=== PATIENT | female | born 1950 | race Caucasian/White ===

== ENCOUNTER 2017-01-21 19:09 | Inpatient (IN) ==
--- NOTE | 2017-01-21 19:25 | PROVIDER DOCUMENTATION ---
HPI-General Adult - General Chief Complaint: Syncope Stated Complaint: fall Time Seen by Provider: 01/21/17 19:17 Allergies/Adverse Reactions: Patient Allergies Allergy/AdvReac Type Severity Reaction Status Date / Time adhesive tape Allergy Mild RASH Verified 02/06/16 07:26 Home Medications: Home Medication List Medication Instructions Recorded Confirmed Last Taken Type Gabapentin [Neurontin] 1 - 2 cap PO Q8HR 11/28/13 01/21/17 01/20/17 21:00 History Glipizide [Glucotrol] 5 mg PO BID 11/28/13 01/21/17 01/20/17 10:00 History Esomeprazole [Nexium] 40 mg PO DAILY 04/09/15 01/21/17 01/19/17 10:00 History Lactulose 2 tsp PO DAILY 04/09/15 01/21/17 01/20/17 10:00 History Furosemide [Lasix] 40 mg PO DAILY 02/06/16 01/21/17 01/20/17 10:00 History Losartan [Cozaar] 50 mg PO DAILY 02/06/16 01/21/17 01/20/17 10:00 History Spironolactone 100 mg PO DAILY 02/06/16 01/21/17 01/20/17 10:00 History Past History - Adult - PAST MEDICAL HISTORY-ADULT Cardiovascular: reports: CAD, HTN, hyperlipidemia Respiratory: reports: bronchitis Gastrointestinal: reports: denies history Genitourinary: reports: denies history Musculoskeletal: reports: denies history Neurological: reports: denies history Endocrine/Immune: reports: Diabetes Other Conditions: reports: denies history - PRIOR SURGERIES/PROCEDURES Surgical/Procedure History: reports: hysterectomy, orthopedic (extremity) - FAMILY HISTORY Family History: diabetes
[2017-01-21 19:37] LABS: ALLEN TEST YES; BE 3.2 mmoll (-3.0-3.0); BLOOD TYPE ARTERIAL; DRAW SITE R RADIAL; METHB 1.7 % (0.0-1.5); O2(CT) 10.5 mL/dL (15.0-23.0); PCO2(98.6) 33 mmHg (35-45); PO2(98.6) 79 mmHg (60-100); SAMPLE BLOOD; SAO2 99.2 % (95.0-100.0); THB 7.7 g/dL (11.5-17.4); pH(98.6) 7.51 (7.35-7.45)
[2017-01-21 19:38] LABS: MODALITY ROOM AIR
[2017-01-21 21:10] LABS: MANUAL DIFF NEEDED? NO
[2017-01-21 21:23] LABS: URINE MICRO REVIEW NEEDED? NO; URINE SOURCE CLEAN CATCH
[2017-01-21 21:26] LABS: BASO% 0.5 % (0.0-0.8); EOS# 0.09 X1000 (0.0-0.7); EOS% 2.2 % (0.0-10.0); HEMOGLOBIN 7.9 g/dL (12.0-16.0); IMM GRAN# 0.03 X1000 (0.0-0.04); IMM GRAN% 0.7 % (0.0-0.5); LYMPH# 0.33 X1000 (1.2-3.4); MCH 29.7 PG (27-31); MCHC 31.6 g/dL (33-37); MONO# 0.43 X1000 (0.11-0.59); MONO% 10.4 % (1.7-9.3); MPV 9.6 FL (7.4-10.4); NEUT% 78.2 % (42.2-75.2); PLT 103 X1000 (130-400); RBC 2.66 XMIL (4.2-5.4)
[2017-01-21 21:28] LABS: BILIRUBIN URINE NEGATIVE (NEGATIVE); BLOOD URINE LARGE (NEGATIVE); COLOR YELLOW; GLUCOSE URINE NEGATIVE (NEGATIVE); LEUKOCYTES URINE LARGE (NEGATIVE); NITRITE URINE NEGATIVE (NEGATIVE); PROTEIN URINE 50 mg/dL (NEGATIVE); SP GRAVITY URINE 1.028; TURBIDITY URINE HAZY (CLEAR); UR EPITHELIAL CELLS >10 /HPF (<10); URINE BACTERIA 4+ /HPF; URINE CULTURE NEEDED? YES; URINE RBC 20-40 /HPF (<10); UROBILINOGEN URINE 4 mg/dL (NORMAL)
[2017-01-21 21:30] LABS: INR 1.31; PTT 28.8 Seconds (22.0-36.0)
[2017-01-21 21:39] LABS: AGAP 10; ALBUMIN 2.4 g/dL (3.5-5.0); ALKALINE PHOSPHATASE 100 U/L (32-104); BUN 15 mg/dL (8-22); CALCIUM 7.8 mg/dL (8.8-10.2); CHLORIDE 106 mmol/L (98-107); CK PROFILE 113 U/L (24-173); COSMO 280; GOT 35 U/L (10-30); GPT 15 U/L (10-36); POTASSIUM 3.6 mmol/L (3.5-5.1); SODIUM 141 mmol/L (136-145); TCO2 25 mmol/L (25-35); TOTAL BILIRUBIN 1.08 mg/dL (0.20-1.00); TOTAL PROTEIN 5.3 g/dL (6.3-8.3)
[2017-01-21 21:40] LABS: UR AMPHETAMINES QUAL NONE DETECTED (NONE DETECT); UR BARBITUATES QUAL NONE DETECTED (NONE DETECT); UR BENZODIAZEPIN QUAL NONE DETECTED (NONE DETECT); UR CANNABINOIDS QUAL NONE DETECTED (NONE DETECT); UR COCAINE QUAL NONE DETECTED (NONE DETECT); UR METHADONE QUAL NONE DETECTED (NONE DETECT); UR OPIATES QUAL NONE DETECTED (NONE DETECT); UR OXYCODONE QUAL NONE DETECTED (NONE DETECT); UR PCP QUAL NONE DETECTED (NONE DETECT)
[2017-01-21] MEDS ORDERED: NORCO-7.5 PO ONE (21:55)
[2017-01-22] MEDS ORDERED: LASIX IV ONE (00:19)
[2017-01-22] MEDS ORDERED: D50W SYRINGE IV ONE (00:20)
[2017-01-22] MEDS: ROCEPHIN 1 GM/NS 1 GM/50 ML IVPB IV SCH (01:40)
[2017-01-22] MEDS ORDERED: TYLENOL PO PRN (02:36)
[2017-01-22] MEDS ORDERED: ZOFRAN IV PRN (02:36)
[2017-01-22 05:48] LABS: BASO% 0.1 % (0.0-0.8); EOS# 0.02 X1000 (0.0-0.7); EOS% 0.3 % (0.0-10.0); HEMATOCRIT 23.3 % (37.0-47.0); HEMOGLOBIN 7.3 g/dL (12.0-16.0); IMM GRAN# 0.02 X1000 (0.0-0.04); IMM GRAN% 0.3 % (0.0-0.5); LYMPH# 0.22 X1000 (1.2-3.4); LYMPH% 2.9 % (20.5-51.1); MANUAL DIFF NEEDED? YES; MCH 29.4 PG (27-31); MCHC 31.3 g/dL (33-37); MONO# 0.44 X1000 (0.11-0.59); MONO% 5.8 % (1.7-9.3); MPV 9.5 FL (7.4-10.4); NEUT% 90.6 % (42.2-75.2); PLT 91 X1000 (130-400); RBC 2.48 XMIL (4.2-5.4)
[2017-01-22 05:57] LABS: LYMPHS 8 % (21-51); MONO 4 % (1-9)
--- NOTE | 2017-01-22 06:12 | EKG Report ---
Test Performed on : 01/21/2017 10:06:14 PM Test Reason : AMS Blood Pressure : / mmHG Vent. Rate : 082 BPM Atrial Rate : 082 BPM P-R Int : 116 ms QRS Dur : 088 ms QT Int : 384 ms P-R-T Axes : 042 020 047 degrees QTc Int : 448 ms Normal sinus rhythm. Cannot rule out Anterior infarct (cited on or before 09-APR-2015) Abnormal ECG When compared with ECG of 09-APR-2015 10:42, Vent. rate has increased BY 29 BPM Nonspecific T wave abnormality now evident in Inferior leads Unconfirmed Result
--- NOTE | 2017-01-22 08:32 | Diag Imaging Result Document ---
PROCEDURE NAME: HEAD W/O CONTRAST - 01/21/[address]: A CT dose reduction protocol was used. COMPARISON: None. FINDINGS: The ventricles and sulci are normal in size and contour. There is no mass, hemorrhage, or evidence of acute ischemia. The bony calvaria is intact. The visualized paranasal sinuses and mastoid air cells are clear. IMPRESSION: Negative head CT. MTDD
[2017-01-22] MEDS ORDERED: LACTULOSE PO SCH (09:00)
[2017-01-22] MEDS ORDERED: ALDACTONE PO SCH (09:00)
[2017-01-22] MEDS ORDERED: LASIX PO SCH (09:00)
--- NOTE | 2017-01-22 09:11 | HISTORY AND PHYSICAL ---
PRIMARY CARE PROVIDER: Lucy Delgado MD. TRADE ANALYST: Dr. Al. CHIEF COMPLAINT: Dizziness. Fell in the bathroom. HISTORY OF PRESENT ILLNESS: This is a 66-year-old, female, with a history of HAYES, coronary artery disease, hypertension, hyperlipidemia, diabetes mellitus type 2 who went in to see Dr. Al for a paracentesis this morning around 8 a.m. She has chronic anemia secondary to her end-stage liver disease. At any rate, she got home after the paracentesis took a nap. She had gone to the bathroom, became very dizzy and fell. She states that she did hit her head. No laceration or hematoma was noted. A CT scan was done in the emergency room which showed no acute intracranial process. No hemorrhage. The patient is alert and oriented x3. Hemoglobin and hematocrit were checked. They were 7.9 and 25 respectively. It appears this morning they were checked as well perhaps before the procedure and were 8.2 and 25.77, so no large drop in her baseline hemoglobin and hematocrit. The patient was noted to have a urinary tract infection per her urinalysis that was collected in the emergency room and had a mild elevation of her temperature at 99.9 degrees. She will be admitted to the medical floor for further evaluation and treatment. PAST MEDICAL HISTORY: 1. HAYES.. 2. Coronary artery disease. 3. Hypertension. 4. Hyperlipidemia. 5. Diabetes mellitus type 2. 6. Heart murmur. PREVIOUS SURGICAL HISTORY: 1. Back surgery. 2. Ankle surgery. 3. Hysterectomy. 4. Carpal tunnel release. 5. Paracentesis. SOCIAL HISTORY: Denies tobacco, alcohol or illicit drug use or abuse. Lives with her daughter. ALLERGIES: No known drug allergies. Allergic to adhesive tape causing a rash. FAMILY HISTORY: Patient denies any significant family history in first-degree relatives. Denied coronary artery disease. HOME MEDICATIONS: 1. Neurontin 300 mg 1-2 capsules p.o. at bedtime. 2. Glipizide 5 mg p.o. b.i.d. 3. Nexium 40 mg p.o. daily. 4. Lactulose 2 teaspoons p.o. daily. 5. Spironolactone 100 mg p.o. daily. 6. Cozaar 50 mg p.o. daily. 7. Lasix 40 mg p.o. daily. REVIEW OF SYSTEMS: Fourteen point review of systems conducted with the patient. Pertinent positives listed above in the HPI. All other systems are negative. All other systems were examined and found to be negative. PHYSICAL EXAMINATION: VITAL SIGNS: Temperature 99.9 degrees, pulse 86, respirations 18, blood pressure 171/49, oxygen saturation 100% on room air. GENERAL: Very pleasant, 66-year-old female, alert and oriented x3. Able answer all questions appropriately. No acute distress lying on ER stretcher. HEENT: Head is atraumatic, normocephalic. Pupils equal, round, reactive to light. Extraocular eye movement is intact. Sclerae is anicteric. Conjunctivae is pale. Oral mucosa is moist. NECK: Supple. No JVD. Trachea is midline. CARDIOVASCULAR: Regular rhythm. S1-S2 appreciated. A 3/6 systolic ejection murmur noted. No gallops, no rubs. LUNGS: Clear to auscultation bilaterally with a slightly diminished symmetrical rise and fall with respirations. ABDOMEN: Protuberant, soft, nondistended, nontender. Positive fluid wave test. Bowel sounds hyperactive all 4 quadrants noted to be distant. MUSCULOSKELETAL: Patient 3/5 upper and lower extremity strength. Global weakness noted. EXTREMITIES: Mid bilateral lower extremities from the valle to foot. There was 3+ pitting edema with color changes related to chronic venostasis. There are 2+ pedal pulses bilaterally. GENITOURINARY: Patient voids, otherwise deferred. NEUROLOGICAL: Alert and oriented x3. Cranial nerves 2-12 are grossly intact. DIAGNOSTIC DATA: CT of the head, no acute intracranial process. No hemorrhage. Chest x-ray mild cardiomegaly. LABORATORY DATA: WBC 4.12, hemoglobin 7.9, hematocrit 25, platelet count 48080.0, PT 14, INR 1.31, PTT 28.8, ABG pH 7.51, PCO2 33, PO2 79 bicarb 27.4. This was on room air. Sodium 141, potassium 3.6, chloride 106, carbon dioxide 25, BUN 15, creatinine 0.8, glucose 68, AST 35, ALT 15, total bilirubin 1.08. Urine large amount of leukocytes, 4+ bacteria. Toxicology screen is negative. Serum alcohol is negative. ASSESSMENT AND PLAN: 1. Chronic anemia secondary to nonalcoholic steatohepatitis. Patient's hemoglobin and hematocrit are 7.9 and 25. They were checked this morning presumably by Dr. Rubi before the paracentesis was performed. At that time they were 8.2 and 25.7. Will type and screen the patient for possible transfusion, but will not transfuse at this time as she is presumably right around her baseline. 2. Nonalcoholic steatohepatitis. The patient sees Dr. Al outpatient for paracentesis and management of this. We will consult Dr. Al. 3. Hypertension. Continue home medications. 4. Diabetes mellitus type 2. Check blood sugars before meals and at bedtime. Continue oral antihyperglycemics. 5. Chronic pain secondary to back surgery, give [place] p.r.n. 6. Urinary tract infection. Rocephin 1 g IV q.24 hours. Further recommendations per patient clinical course. Dictated by OWEN Price for Joseph Torrez MD cc: OWEN Price MD Faye Wilson, MD Manish Arora, MD
--- NOTE | 2017-01-22 09:18 | Diag Imaging Result Document ---
PROCEDURE NAME: KNEE 3 VIEWS RIGHT - 01/21/2017 X-RAY RIGHT KNEE THREE VIEWS: COMPARISON: None. FINDINGS: There is moderate joint space narrowing and degenerative spurring involving all joint compartments. No visible fracture. There is probably a large nonspecific joint effusion. IMPRESSION: Degenerative changes of the knee. Rather large joint effusion. No obvious fracture.
--- NOTE | 2017-01-22 09:47 | Diag Imaging Result Document ---
PROCEDURE NAME: CHEST-PORTABLE - 01/21/2017 SINGLE FRONTAL RADIOGRAPH OF THE CHEST: COMPARISON: 11/28/2013. FINDINGS: There is suggestion of minimal left basilar atelectasis. The lungs are clear otherwise. There is no definite pleural fluid collection. Cardiac silhouette is mildly prominent but stable. Central vasculature is unremarkable. IMPRESSION: Suggestion of minimal left lower lung zone atelectasis and stable cardiomegaly.
[2017-01-22] MEDS: PRILOSEC PO SCH (09:54)
[2017-01-22] MEDS: GLUCOTROL PO SCH ×2 (09:55→21:06)
[2017-01-22] MEDS: COZAAR PO SCH (09:55)
[2017-01-22] MEDS: NORCO-7.5 PO PRN ×2 (12:15→18:08)
[2017-01-22] MEDS ORDERED: ALBUMIN 25% IV ONE (12:45)
--- NOTE | 2017-01-22 14:35 | PROGRESS NOTE ---
DATE: 01/22/2017 SUBJECTIVE: This patient states that she is feeling much better. She had a paracentesis done and she is breathing comfortably. She does have a burning sensation with urination. Family member is at the bedside. Gastroenterology department has been consulted. OBJECTIVE: Vital Signs: Temperature 98.4 degrees, pulse 100, respiratory rate 20, blood pressure 140/62, oxygen saturation 100% on room air. HEENT: Head normocephalic. No trauma. PERRLA. Neck: Supple. No JVD. No masses. Central trachea. Chest: Mild rales at the bases. Abdomen: Soft, distended. There was a recent paracenteses and ascitic fluid is leaking from the paracentesis area. Positive bowel sounds. No pain. Extremities: No clubbing. No cyanosis. There are 2+ pulses bilaterally. There is 2+ pitting edema. Neurological: The patient is alert and oriented x3. No focal neurological deficits. LABORATORY: WBC 7.5, hemoglobin 7.3, hematocrit 23.3, platelets 91,000. Ammonia 54. Urine blood large, urine leukocyte large, urine WBC 10-20, urine bacteria 4+. ASSESSMENT AND PLAN: 1. Urinary tract infection. This patient has been placed on antibiotics. I will hold for now the Lasix and spironolactone. We will continue to monitor. 2. Liver cirrhosis. Today this patient had a paracentesis done. She had ascitic fluid collected. We will continue to monitor. Dr. Al has been following this patient. 3. Hypertension. Continue with home medication. 4. Type 2 diabetes. Continue with the same management for now. 5. Chronic pain syndrome secondary to back surgery. Continue with home medications. 6. Chronic anemia. Aware. cc: Kaushal Jarrell MD
[2017-01-22] MEDS: LEVAQUIN 750 MG/D5W 750 MG/150 ML IVPB IV SCH (14:57)
--- NOTE | 2017-01-22 16:50 | CONSULTATION ---
DATE OF CONSULTATION: 01/22/2017 REFERRING PHYSICIAN: Kaushal Jarrell MD PRIMARY CARE DOCTOR: Lucy Delgado MD REASON FOR CONSULTATION: Liver cirrhosis. Status post fall and UTI. HISTORY OF PRESENT ILLNESS: Ms. Goodwin is a 66-year-old female who has a known history of nonalcoholic steatohepatitis complicated with cirrhosis, ascites, pedal edema, encephalopathy, thrombocytopenia, coagulopathy, anemia who had a recent paracentesis done yesterday on 01/21/2017 where 3.7 L was removed. After that, the patient discharge home. The patient yesterday after she went home had a nap and after the nap, she woke up and went to the bathroom and became dizzy and fell. She hit her head. Her imaging, the CT scan did not show any evidence of acute intracranial process and no hemorrhage. The patient was noted to have positive UA. Her urine culture is currently pending. She has history of previous UTI, but the last UTI with many years ago. She saw me in the clinic 2 days ago after a year. She was not very compliant with her medications at that time, so we restarted her back on her lipid medication. During this admission, the patient denies any nausea or vomiting, vomiting blood or passing blood in the stools. She does complain of low-grade fever, 99.9. The primary care team is evaluating her for urosepsis. PAST MEDICAL HISTORY: 1. HAYES. 2. Liver cirrhosis. 3. Ascites. 4. Encephalopathy. 5. Reflux disease. 6. Thrombocytopenia. 7. Coagulopathy. 8. Coronary artery disease. 9. Hypertensive. 10. Hyperlipidemia. 11. Type 2 diabetes. 12. Heart murmur. 13. Obesity. PREVIOUS SURGICAL HISTORY: Back surgery, hysterectomy, carpal tunnel release. SOCIAL HISTORY: Denies alcohol, tobacco or illicit drugs. She lives with her daughter, very supportive daughter at bedside. ALLERGIES: No known drug allergies, but she is allergic to adhesive tape causing a rash. FAMILY HISTORY: No history of liver disease in the family. MEDICATIONS AT HOME: 1. Neurontin 300 mg, 1-2 tablets at bedtime. 2. Glipizide 5 mg b.i.d. 3. Nexium 40 mg daily. 4. Lactulose 30 mL p.o. b.i.d. 5. Spironolactone 100 mg once daily. 6. Cozaar 50 mg daily. 7. Lasix 40 mg daily. 8. Multivitamin once daily. REVIEW OF SYSTEMS: Denies any current chills, but does complain of low-grade fever, and feeling warm. Denies any chest pain, shortness of breath, dyspnea. Denies vomiting blood or passing blood in the stools. Denies any nausea, vomiting, does complain of some leakage at the paracentesis site and has surgical gauze on that side. Denies any abdominal pain. Does complain of burning urination. Denies any neurologic complaints, although at home she did have a fall. PHYSICAL EXAMINATION: Vital signs: Temperature of 98.4 degrees, pulse rate of 100, respiratory rate 20, blood pressure 140/62, saturating 100% on room air. Body weight of 245 pounds. BMI of 39.5 kg/m2. General: well-developed, well-nourished female who is obese, lying in bed, in no acute distress. HEENT: Pale conjunctivae. Mild icterus. Pupils equal, react to light. Neck: Supple. Chest: Decreased breath sounds bases. Heart: Regular rhythm. Tachycardic at times. Abdomen: Obese, mild ascites noted, mild distention noted. Body wall edema. Anasarca noted. Surgical dressing on gauze noted in the right lower quadrant at the site for paracentesis which the area is wet. No tenderness in the abdomen. Bowel sounds present. Extremities: Bilateral lower extremity edema noted. Neurologic: She is alert, awake, oriented. LABORATORY/DIAGNOSTICS: Her hemoglobin and hematocrit is 7.3, 23.3, white count of 7.5 platelet count of 91,000, MCV of 94. INR of 1.3, PT of 14, PTT of 28.8. Her sodium 140, potassium 3.6, chloride 106, bicarb 25, anion gap 10, BUN of 15, creatinine 0.8, glucose of 68, calcium 7.8. Total bilirubin is 1.08, AST 35, ALT 15, alkaline phosphatase 100, total protein is 5.3, albumin of 2.4, ammonia 54, and lactate of 1.1. ABG: PH of 7.51, pCO2 32, PO2 of 71, this is on room air. Urinalysis showing positive protein, trace ketones, large amount of blood, large leukocytes and bacteria positive. Tox screen is negative. Blood alcohol level is negative. Head CT done showed negative head CT. Ultrasound done yesterday which showed: 1) Nodular liver contour suggesting cirrhosis. 2) Splenomegaly with the spleen size measuring 16.4 cm. 3) Ascites. Ascitic tap done yesterday by Dr. Octaviano Hay where 3.7 L of cloudy straw-colored fluid was aspirated. No known complications and the fluid studies are showing white cells of 426. Polymorphonuclear white cells of 64% and total protein 0.7, albumin of 0.2. This is consistent with a spontaneous bacterial peritonitis. IMPRESSION AND PLAN: 1. Spontaneous bacterial peritonitis per the fluid studies from yesterday. 2. Liver cirrhosis. 3. Thrombocytopenia. 4. Coagulopathy. 5. Metabolic syndrome. 6. Diabetes, hypertension, hyperlipidemia, obesity. 7. Urinary tract infection. RECOMMENDATIONS: 1. We will give the patient albumin 25 g IV once daily for 5 days. 2. We will keep her on antibiotics with Levaquin. Her ascitic fluid culture is currently pending. We will also do a urine culture, it is currently pending. 3. We will keep her on Protonix once daily. 4. We will hold her Lasix and Aldactone for now. 5. We will keep a strict eye on her electrolytes, input and output and daily weights. 6. We will keep her on lactulose 30 mL p.o. b.i.d., and Xifaxan 500 mg p.o. b.i.d. 7. We will avoid any hepatotoxic drugs. 8. Further recommendations pending hospital course. The patient will need to be on Levaquin for 2 weeks. Further recommendations pending hospital course. I discussed the above plan of care with the patient and her daughter at bedside. cc: MD Stanley Hathaway MD
[2017-01-22] MEDS: NEURONTIN PO SCH (21:06)
[2017-01-22] MEDS: CENTRUM SILVER PO SCH (21:06)
[2017-01-22] MEDS: LACTULOSE PO SCH (21:06)
[2017-01-22] MEDS: ICAR-C PO SCH (21:06)
[2017-01-22] MEDS: XIFAXAN PO SCH (21:45)
[2017-01-23] MEDS: ROCEPHIN 1 GM/NS 1 GM/50 ML IVPB IV SCH (00:56)
[2017-01-23] MEDS: PRILOSEC PO SCH ×2 (05:57→06:52)
[2017-01-23 06:04] LABS: MANUAL DIFF NEEDED? NO
[2017-01-23 06:16] LABS: BASO% 0.4 % (0.0-0.8); EOS# 0.08 X1000 (0.0-0.7); EOS% 2.9 % (0.0-10.0); HEMATOCRIT 21.1 % (37.0-47.0); HEMOGLOBIN 6.5 g/dL (12.0-16.0); LYMPH# 0.26 X1000 (1.2-3.4); LYMPH% 9.4 % (20.5-51.1); MCH 29.1 PG (27-31); MCHC 30.8 g/dL (33-37); MCV 94.6 FL (81-99); MONO# 0.28 X1000 (0.11-0.59); MONO% 10.1 % (1.7-9.3); MPV 9.8 FL (7.4-10.4); NEUT% 77.2 % (42.2-75.2); PLT 76 X1000 (130-400); RBC 2.23 XMIL (4.2-5.4)
[2017-01-23 06:42] LABS: AGAP 8; ALBUMIN 2.3 g/dL (3.5-5.0); ALKALINE PHOSPHATASE 76 U/L (32-104); BUN 18 mg/dL (8-22); CALCIUM 7.7 mg/dL (8.8-10.2); CHLORIDE 105 mmol/L (98-107); COSMO 274; GOT 28 U/L (10-30); GPT 12 U/L (10-36); POTASSIUM 3.4 mmol/L (3.5-5.1); SODIUM 137 mmol/L (136-145); TCO2 24 mmol/L (25-35); TOTAL BILIRUBIN 0.51 mg/dL (0.20-1.00); TOTAL PROTEIN 4.8 g/dL (6.3-8.3)
[2017-01-23] MEDS ORDERED: KLOR-CON PO ONE (08:17)
[2017-01-23] MEDS: COZAAR PO SCH (09:42)
[2017-01-23] MEDS: LACTULOSE PO SCH ×2 (09:42→20:38)
[2017-01-23] MEDS: GLUCOTROL PO SCH ×2 (09:42→20:38)
[2017-01-23] MEDS: CENTRUM SILVER PO SCH ×2 (09:42→20:38)
[2017-01-23] MEDS: XIFAXAN PO SCH ×2 (09:42→20:38)
[2017-01-23] MEDS: ICAR-C PO SCH ×2 (09:42→20:38)
[2017-01-23] MEDS ORDERED: NS 500 ML ONE (10:01)
--- NOTE | 2017-01-23 13:16 | PROGRESS NOTE ---
DATE: 01/23/2017 SUBJECTIVE: This patient states that she is feeling much better, I had a hemoglobin result that showed a decrease of her hemoglobin and hematocrit. Today the hemoglobin is 6.5, and the plan is to transfuse this patient with 1 unit. OBJECTIVE: Vital Signs: Temperature 98.1 degrees, pulse 72, respiratory rate 14, blood pressure 126/80 O2 saturation 99 on room air. HEENT: Head normocephalic. No trauma. PERRLA. Neck: Supple. No JVD. No masses. Central trachea. Abdomen: Soft, nontender, nondistended. Abdomen: Soft, nontender, distended. She had a recent paracenteses and ascitic fluid is leaking from the paracentesis area. Positive bowel sounds. No pain. Extremities: No clubbing, no cyanosis, 2+ pulses bilaterally, 2+ pitting edema. Neurological: The patient is alert and oriented x3. No focal neurological deficits. LABORATORY: WBC 2.7, hemoglobin 6.5, hematocrit 21.1, platelets 76,000. Sodium 137, potassium 3.4, chloride 105, bicarbonate 24, BUN 18, creatinine 0.9. Glucose 72, calcium 7.7, albumin 2.8. ASSESSMENT AND PLAN: 1. Urinary tract infection. This patient has been placed on antibiotics. She is feeling much better. I held for now her Lasix and spironolactone. We will continue to monitor. 2. Liver cirrhosis. Yesterday this patient had a paracentesis done. We will continue to monitor. Gastroenterology Department is on board. 3. Hypertension continue with home medication. 4. Type 2 diabetes. Continue with the same management. 5. Chronic pain syndrome secondary to back surgery. Continue with home medication. 6. Chronic anemia, today the hemoglobin is 6.5. I will transfuse this patient with 1 PRBC. cc: Kaushal Jarrell MD
[2017-01-23] MEDS: LEVAQUIN 750 MG/D5W 750 MG/150 ML IVPB IV SCH (13:21)
[2017-01-23] MEDS: NEURONTIN PO SCH (20:38)
[2017-01-23] MEDS: NORCO-7.5 PO PRN (21:04)
[2017-01-24] MEDS: ROCEPHIN 1 GM/NS 1 GM/50 ML IVPB IV SCH (00:32)
[2017-01-24] MEDS: PRILOSEC PO SCH (06:28)
[2017-01-24 06:37] LABS: MANUAL DIFF NEEDED? NO
[2017-01-24 06:48] LABS: BASO% 0.4 % (0.0-0.8); EOS% 7.7 % (0.0-10.0); HEMATOCRIT 25.6 % (37.0-47.0); HEMOGLOBIN 7.9 g/dL (12.0-16.0); LYMPH# 0.43 X1000 (1.2-3.4); LYMPH% 16.5 % (20.5-51.1); MCH 28.8 PG (27-31); MCHC 30.9 g/dL (33-37); MCV 93.4 FL (81-99); MONO# 0.29 X1000 (0.11-0.59); MONO% 11.2 % (1.7-9.3); MPV 10.1 FL (7.4-10.4); NEUT% 64.2 % (42.2-75.2); PLT 107 X1000 (130-400); RBC 2.74 XMIL (4.2-5.4)
[2017-01-24 07:05] LABS: AGAP 8; BUN 17 mg/dL (8-22); CALCIUM 7.7 mg/dL (8.8-10.2); CHLORIDE 108 mmol/L (98-107); COSMO 282; POTASSIUM 3.3 mmol/L (3.5-5.1); SODIUM 142 mmol/L (136-145); TCO2 26 mmol/L (25-35)
[2017-01-24 07:49] VITALS: BP 133/48
[2017-01-24] MEDS: LACTULOSE PO SCH (10:01)
[2017-01-24] MEDS: ICAR-C PO SCH (10:02)
[2017-01-24] MEDS: COZAAR PO SCH (10:02)
[2017-01-24] MEDS: XIFAXAN PO SCH (10:02)
[2017-01-24] MEDS: GLUCOTROL PO SCH (10:02)
[2017-01-24] MEDS: CENTRUM SILVER PO SCH (10:02)
--- NOTE | 2017-01-27 16:27 | PROVIDER DOCUMENTATION ---
This chart was entered by Joy English Scribe, acting as scribe for Zev Roman MD. HPI-Syncope/Dizziness - General Chief Complaint: Syncope Stated Complaint: fall Time Seen by Provider: 01/21/17 19:17 Source: patient, EMS Allergies/Adverse Reactions: Patient Allergies Allergy/AdvReac Type Severity Reaction Status Date / Time adhesive tape Allergy Mild RASH Verified 01/21/17 19:48 Home Medications: Home Medication List Medication Instructions Recorded Confirmed Last Taken Type Gabapentin [Neurontin] 1 - 2 cap PO QHS 11/28/13 01/21/17 01/20/17 21:00 History Glipizide [Glucotrol] 5 mg PO BID 11/28/13 01/21/17 01/21/17 07:00 History Esomeprazole [Nexium] 40 mg PO DAILY 04/09/15 01/21/17 01/21/17 07:00 History Lactulose 2 tsp PO DAILY 04/09/15 01/21/17 01/21/17 07:00 History Furosemide [Lasix] 40 mg PO DAILY 02/06/16 01/21/17 01/21/17 07:00 History Losartan [Cozaar] 50 mg PO DAILY 02/06/16 01/21/17 01/21/17 07:00 History Spironolactone 100 mg PO DAILY 02/06/16 01/21/17 01/21/17 07:00 History Rifaximin [Xifaxan] 550 mg PO BID #60 tablet 01/24/17 Unknown Rx - History of Present Illness-Syncope/Dizzy Nature of Presenting Problem: PT IS A 66YODF PRESENTING TO THE ED C/O FALL. EMS REPORTS PT HAD A PROCEDURE TO REMOVE SOME FLUID IN HER ABD TODAY AND PT REPORTS THAT SHE HAS HAD SYNCOPAL EPISODES IN THE PAST AND TODAY SHE ASSUMES SHE HAD A SYNCOPAL EPISODE BC SHE WENT TO THE RESTROOM AND WOKE UP IN FLOOR BETWEEN TOILET AND WALL. SHE STATES PAIN RIGHT EYEBROW AND CHEEK, WELL RIGHT KNEE PAIN. NO DEFORMITY OR OPEN WOUNDS SEEN AT EXAM. NO OTHER COMPLAINTS AT THIS TIME If witnessed syncope, by whom?: UNK Prior Episodes: reports: recent history Onset/Duration: reports: just prior to arrival Timing: reports: still present, intermittent Position/Activity at time of episode: reports: sitting Symptoms prior to episode: reports: none. denies: nausea/vomiting, abdominal pain Context: reports: lost consciousness Loss of Consciousness: unsure Location of injury. (If syncope resulted in an injury.): reports: head (RIGHT CHEEK AND EYEBROW), RLE Current Symptoms: reports: none/feels normal. denies: dizzy Similar symptoms previously: denies: previous diagnosis Recently Seen Here or By Another Healthcare Provider: Yes - Dizziness Severity in ED: reports: moderate Dizziness Related Current/Associated Symptoms: reports: lightheaded, dizzy, lightheaded, syncope Any recent trauma/injury?: reports: minor, to head Modifying Factors: improves with: nothing Patient usually:: reports: uses a cane Review of Systems - Adult - REVIEW OF SYSTEMS - ADULT Constitutional: reports: no symptoms reported Eyes: reports: no symptoms reported Ears, Nose, Mouth & Throat: reports: no symptoms reported Cardiovascular: reports: no symptoms reported Respiratory: reports: no symptoms reported Gastrointestinal: reports: no symptoms reported Genitourinary: reports: no symptoms reported Musculoskeletal: reports: see HPI, joint pain (RIGHT KNEE), muscle weakness. denies: neck pain Integumentary: reports: no symptoms reported Neurological: reports: see HPI, syncope. denies: seizure, slurred speech Psychiatric: reports: no symptoms reported Endocrine: reports: no symptoms reported Hematologic/Lymphatic: reports: no symptoms reported Allergic/Immunologic: reports: no symptoms reported All Other Systems: Reviewed and Negative Past History - Adult - PAST MEDICAL HISTORY-ADULT Review of Records: reports: Old Records Reviewed, Nursing Assessment Review, Medications Reviewed, Social history reviewed & non-contributory. Major Childhood Illnesses: reports: denies history Cardiovascular: reports: CAD, HTN, hyperlipidemia Respiratory: reports: bronchitis Gastrointestinal: reports: denies history Obstetrical/Gynecological: reports: denies history Genitourinary: reports: denies history Musculoskeletal: reports: denies history Neurological: reports: denies history Endocrine/Immune: reports: Diabetes Other Conditions: reports: denies history - PRIOR SURGERIES/PROCEDURES Surgical/Procedure History: reports: hysterectomy, orthopedic (extremity) - IMMUNIZATION STATUS Childhood Immunizations: See Nurse Assessment Flu Vaccine: See Nurse Assessment - FAMILY HISTORY Family History: diabetes - SOCIAL HISTORY Smoking: denies, non-smoker Substance Use: none/never, denies Alcohol Use Frequency: never Living Situation: family Physical Exam-General - PHYSICAL EXAM-ADULT Initial Vital Signs Reviewed: Yes - CONSTITUTIONAL General Appearance: appears well, alert, mild distress. negative: no apparent distress - EYES Eyes: PERRL/EOMI, pink conjunctivae, fundi clear, no AV nicking - HEAD, EARS, NOSE, MOUTH & THROAT HENMT: normocephalic/atraumatic, moist mucous membranes, normal ENT inspection, TMs normal, pharynx normal - NECK Neck: non-tender, full range of motion, supple, normal inspection - RESPIRATORY Respiratory: chest non-tender, lungs clear, normal breath sounds, no pleuratic chest pain, no respiratory distress, no accessory muscle use - CARDIOVASCULAR Cardiovascular: normal peripheral pulses, regular rate, rhythm, no edema, no gallop, no JVD, no murmur - GASTROINTESTINAL (ABDOMEN) Abdominal Exam: normal bowel sounds, non tender, soft, no organomegaly, no pulsatile mass - LYMPHATIC Lymphatic: no adenopathy - MUSCULOSKELETAL Back Exam: normal inspection, no CVA tenderness, no vertebral tenderness Extremity: no pedal edema, no calf tenderness, normal capillary refill, pelvis stable, tenderness (RT KNEE). negative: normal range of motion, non-tender, normal gait, normal inspection - SKIN Integumentary: normal color, normal turgor, warm/dry - NEUROLOGIC Neurologic: labor standards director II-XII nml as tested, grossly normal, no motor/sensory deficits - PSYCHIATRIC Psych/Mental Status: normal mood/affect, normal thought content, normal thought process, oriented x 3 Progress - PLAN OF CARE/RESULTS Progress/Plan/Lab Results: Orders Category Date Time Status Admit - [facility] Routine AdmDCTranf 01/21/17 23:56 Ordered Activity - Strict Bedrest ORDERED Care 01/22/17 02:36 Active Apply Mechanical Device [QM] ORDERED Care 01/22/17 02:36 Active Cardiac Monitoring DIRECTED Care 01/21/17 19:21 Completed FSBS/Accucheck Result AC + HS Care 01/22/17 02:36 Active Finger Stick Blood Sugar (ED) DIRECTED Care 01/21/17 19:21 Completed Intake and Output-Strict ORDERED Care 01/22/17 02:36 Active Nursing- MD Consult Request ROUTINE Care 01/22/17 02:36 Active Oxygen Therapy- ED Nursing DIRECTED Care 01/21/17 19:21 Completed Saline Loc NOW Care 01/21/17 19:21 Completed Vital Signs Order Q6-HR ASSESS Care 01/22/17 02:36 Active Physician/Provider Consults Routine Cons 01/22/17 08:00 Ordered Diabetic Diet Diet 01/22/17 00:14 Completed CHEST-PORTABLE [RAD] Stat Exams 01/21/17 19:21 Completed HEAD W/O CONTRAST [CT] Stat Exams 01/21/17 19:25 Completed KNEE 3 VIEWS RIGHT [RAD] Stat Exams 01/21/17 19:23 Completed ABG [RESP] Routine Lab 01/21/17 19:28 Completed ALCOHOL BLOOD Stat Lab 01/21/17 21:05 Completed AMMONIA [CHEM] Stat Lab 01/22/17 02:25 Completed CBC WITH DIFF [HEME] Routine Lab 01/22/17 05:25 Completed CBC WITH ELECTRONIC DIFF [HEME] Stat Lab 01/21/17 21:05 Completed CK PROFILE [SP CHEM] Stat Lab 01/21/17 21:05 Completed COMPREHENSIVE METABOLIC PANEL [CHEM] Routine Lab 01/23/17 04:30 Completed COMPREHENSIVE METABOLIC PANEL [CHEM] Stat Lab 01/21/17 21:05 Completed LACTATE, PLASMA [CHEM] Stat Lab 01/21/17 21:05 Completed PROTIME WITH INR [COAG] Stat Lab 01/21/17 21:05 Completed PTT [COAG] Stat Lab 01/21/17 21:05 Completed TROPONIN T Stat Lab 01/21/17 21:05 Completed TYPE & SCREEN [BBK] Stat Lab 01/22/17 02:25 Completed URINALYSIS W/POSS RFLX CULT-1 [URINALYSIS] Stat Lab 01/21/17 20:45 Completed URINE CULTURE [RM] Routine Lab 01/21/17 21:34 Completed URINE DRUG SCREEN Stat Lab 01/21/17 20:45 Completed Acetaminophen [Tylenol] Med 01/22/17 02:36 Discontinued 650 mg PO Q6H PRN PRN CefTRIAXONE 1 GM/NS [Rocephin 1 gm/Ns] Med 01/22/17 00:30 Discontinued 1 gm in 50 ml IV Q24H Dextrose 50% Syringe [D50w Syringe] Med 01/22/17 00:20 Discontinued 12.5 ml IV NOW ONE Furosemide [Lasix] Med 01/22/17 00:19 Discontinued 20 mg IV NOW ONE Furosemide [Lasix] Med 01/22/17 09:00 Discontinued 40 mg PO DAILY Gabapentin [Neurontin] Med 01/22/17 21:00 Discontinued 300 mg PO QHS Glipizide [Glucotrol] Med 01/22/17 09:00 Discontinued 5 mg PO BID Hydrocodone/APAP 7.5 mg/325 mg [[place]-7.5] Med 01/22/17 02:36 Discontinued 1 - 2 each PO Q6H PRN PRN Hydrocodone/APAP 7.5 mg/325 mg [[place]-7.5] Med 01/21/17 21:55 Discontinued 1 each PO NOW ONE Lactulose Med 01/22/17 09:00 Discontinued 10 ml PO DAILY Losartan [Cozaar] Med 01/22/17 09:00 Discontinued 50 mg PO DAILY Omeprazole [Prilosec] Med 01/22/17 07:00 Discontinued 20 mg PO DAILY@0700 Ondansetron [Zofran] Med 01/22/17 02:36 Discontinued 4 mg IV Q4H PRN PRN Spironolactone [Aldactone] Med 01/22/17 09:00 Discontinued 100 mg PO DAILY Pulse Oximetry Stat Oth 01/21/17 19:21 Completed Telemetry [OM.EQ] Routine Oth 01/22/17 02:36 Active EKG [EKG] Stat Ther 01/21/17 19:21 Draft Physical Therapy Eval/Treatment [OM.PT] Routine Ther 01/22/17 02:36 Active Transfer/Admit Order [TRANSFER] Routine Transfer 01/21/17 23:57 Completed Result Diagrams: 01/24/17 05:50 01/24/17 05:50 - XRAY 1 XRAY: Bilateral XRAY Study: Chest (CHRONIC INTERSTIITIAL CHANGES) 2 XRAY: Right XRAY Study: Knee (NAD - ARTHRITIS) - CT/MRI 1 CT Study: Head (NEG) - CONSULTS/PCP/HOSPITALIST Notification #1 *Consult/PCP/Hospitalist*: ELISE Time Discussed: 23:48 (ACCEPT TO ADMIT PT FOR ANEMIA AND SYNCOPE) Consult Disposition: Admit Departure - Departure Time of Disposition Decision: 23:48 DIAGNOSIS: Anemia, Syncope Disposition: ADMITTED INPATIENT 09 Certified Medical Emergency: Emergent Condition: Stable - Critical Care Note This patient required my direct personal management.: Yes Attestation - Physician/ KEYLA Attestation Patient care was provided by Advanced Practice Provider:: Yes Advanced Practice Provider documentation review:: The Mid-level provider documentation, treatment plan and medical decision making was reviewed by the physician who agrees with all treatment and medical decision making by the MLP. The physician spent face to face time with patient:: Yes Advanced Practice Provider documentation review:: The physician spent face to face time with this patient and agrees with all MLP documentation, treatment, and medical decision making by the MLP. See provider notes for further information. This chart was documented by the indicated scribe, (Joy English Scribe) and accurately reflects the services I performed and decisions made by me, Zev Roman MD, as attested by the provider's signature.
--- NOTE | 2017-03-03 13:46 | DISCHARGE SUMMARY ---
ADMISSION DATE: 01/22/2017 DISCHARGE DATE: 01/24/2017 CONSULTATIONS: Dr. Al with gastroenterology. PERTINENT PROCEDURES: 1. Head CT was negative. 2. Right knee x-ray showed degenerative changes, rather large joint effusion. No osseous fracture. 3. Chest x-ray showed suggestion of minimal lower lung zone atelectasis and stable cardiomegaly. DISCHARGE DIAGNOSES: 1. Urinary tract infection. Patient placed on antibiotics, improved. 2. Liver cirrhosis status post paracentesis followed by Dr. Nazario. 3. Hypertension. Continue with home medications. 4. Diabetes mellitus type 2, continue with same management. 5. Chronic pain syndrome secondary to back surgery. Continue with home medications. 6. Chronic anemia. The patient was transfused with 1 unit of packed red blood cells. Hemoglobin and hematocrit at discharge was 7 and 25. HOSPITAL COURSE: Ms Goodwin is a 66-year-old female with a history of HAYES, coronary artery disease, hypertension, hyperlipidemia, diabetes mellitus type 2 who had went to see Dr[address] Al for paracentesis on the morning of her admission around 8 a.m. She also has chronic anemia secondary to her end-stage liver disease. Patient got home after her paracentesis, she took a nap, she had gone to the bathroom became very dizzy and fell. She states that she did not hit her head. No laceration or hematoma noted. CT scan was done in the ED that showed no acute intracranial process. No hemorrhage. The patient was alert and oriented. Her hemoglobin and hematocrit was 7.9 and 25. She was also noted to have a UTI and a temperature of 99.9 degrees. She was admitted to the medical floor for UTI as well as chronic anemia secondary to her HAYES, initially held off on her transfusion however the next day she was 6.5 and 21 so she was transfused with 1 unit of PRBCs as well as started on antibiotics and held her Lasix and spironolactone. She was also given IV albumin per GI and kept her on her PPI as well as her lactulose and Xifaxan. The patient was appropriate for discharge on 01/24/2017. After her transfusion patient's hemoglobin and hematocrit came up to around her baseline of 7.9 and 25. DISCHARGE MEDICATIONS: 1. Nexium 40 mg p.o. daily. 2. Lasix 40 mg p.o. daily. 3. Neurontin 1-2 caps p.o. at bedtime. 4. Glucotrol 5 mg p.o. b.i.d. 5. Lactulose 2 tablespoons p.o. daily. 6. Cozaar 50 mg p.o. daily. 7. Xifaxan 550 mg p.o. b.i.d. 8. 100 mg p.o. daily. FOLLOWUP: The patient was discharged home where she can continue to follow with her primary care physician Lucy Delgado as well her primary blow mold machine operator. Patient can return to the ED for any worsening of symptoms. Dictated by OWEN Roldan for Adelfo Guerra MD
== END 2017-01-24 15:06 | disposition home or self-care (01) ==
LOC: ED 19:09 → EDIPHOLD 01-22 01:08 → SUATTDRO 01-22 01:08 → 4N 01-22 13:43
PROVIDERS: ATTEND Internal Medicine